=== PATIENT | male | born 1960 | race Caucasian/White ===

== ENCOUNTER → 2019-03-25 | Outpatient (CLI) | payer BC ==
--- NOTE | 2019-03-25 11:20 | REP ---
CT IACs / temporal bones: 03/25/2019. Indication: Hearing loss. Comparison: None. Technique: Axial images of the temporal bones were obtained without IV IV contrast with coronal reconstructions provided. Findings: Left: Mastoid effusion is present without coalescence. There is abnormal soft tissue within the hypotympanum of the middle ear cavity. No ossicular erosion or adjacent osseous erosion is detected. There is retraction of the tympanic membrane. The inner inner anatomy and IAC appear normal. No cerebellopontine angle abnormalities are detected. There is no carotid artery aberrancy. Right: The right mastoid air cells are clear. The middle and inner ear anatomy appears normal. No abnormalities of the IAC or cerebellopontine angle are present. There is minimal periosteal distal thickening within the inferior right maxillary sinus. There is no carotid artery aberrancy. No ocular, intraorbital or intracranial abnormalities are detected save for intracranial atherosclerotic disease. Impression: Left-sided mastoid effusion without coalescence and abnormal tissue within the left middle ear cavity without ossicular/osseous erosion. Findings are likely inflammatory, however, please correlate. Unremarkable right IAC / temporal bones. Minimal chronic appearing right maxillary sinus disease. Electronically Signed by Edil Cueva DO 03/25/2019 11:12 A
== END ==
LOC: M RAD 07:25
PROVIDERS: ATTEND Otolaryngology
DX: I67.2 Cerebral atherosclerosis (principal); H70.12 Chronic mastoiditis, left ear; H73.892 Other specified disorders of tympanic membrane, left ear; J32.0 Chronic maxillary sinusitis; H90.A31 Mixed conductive and sensorineural hearing loss, unilateral, right ear with restricted hearing on the contralateral side

== ENCOUNTER → 2019-09-30 | Outpatient (CLI) | payer BC ==
[2019-09-30 17:02] LABS: BLOOD UREA NITROGEN 18 MG/DL (7-18); GLOMERULAR FILTRATION RATE > 60.0 (>49)
== END ==
LOC: M LAB 15:41
PROVIDERS: ATTEND Physician Assistant Medical
DX: H90.A31 Mixed conductive and sensorineural hearing loss, unilateral, right ear with restricted hearing on the contralateral side (principal)

== ENCOUNTER → 2019-10-06 | Outpatient (CLI) | payer BC ==
[~2019-10-06] MED LIST: PROHANCE 279.3MG/ML 15ML VIAL As Ordered ONE; PROHANCE 279.3MG/ML 5ML VIAL As Ordered ONE
--- NOTE | 2019-10-06 10:39 | REP ---
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 Comparison study MRI brain June 21, 2019. TECHNIQUE: Axial, coronal and sagittal imaging planes are utilized. T1- and T2-weighted scans are included. Diffusion weighted scans are included. Thin section posterior fossa at T1 and T2-weighted scans are included. MRI FINDINGS: Craniocervical junction and upper cervical cord are unremarkable. No bony calvarial lesion is seen. There is no evidence of intraorbital abnormality. The deep facial soft tissues are unremarkable. There is no MR evidence of significant paranasal sinus disease. FLAIR and turbo spin echo T2-weighted scans again demonstrate 2-3 subcortical and periventricular white matter foci of T2 hyperintensity consistent with microvascular ischemic changes. These are unchanged. The internal auditory canals are normal in size and symmetric. Seventh and eighth nerves are seen within them. There is no evidence of CP angle cistern mass. No vascular abnormality is appreciated. Postcontrast images show no abnormal intercanalicular or extra canalicular contrast enhancement. No abnormal intracranial contrast enhancement is appreciated. Diffusion weighted scans show no evidence to suggest acute ischemia. There is no evidence of intracranial hemorrhage, mass, extra-axial fluid collection, or midline shift. Ventricular system is normal in size and configuration. IMPRESSION: No acute intracranial abnormality. Normal internal auditory canals. Electronically Signed by Gatito Josue MD 10/06/2019 11:49 A
== END ==
LOC: M RAD 07:33
PROVIDERS: ATTEND Physician Assistant Medical
DX: H90.A31 Mixed conductive and sensorineural hearing loss, unilateral, right ear with restricted hearing on the contralateral side (principal)
CPT/HCPCS: 70553; A9576

== ENCOUNTER → 2021-07-12 | Outpatient (CLI) | payer BC ==
[~2021-07-12] MED LIST changes: +ASPI81TA26 PO; +ATOR1TAB19 PO; +CINN500C15 PO; +DIPH25CA32 PO; +FARX1TAB3 PO; +FLAX1CAP5 PO; +FLUTISP; +HYDR-3490 PO; +JANU100T PO; +LISI40TA4 PO; +LOTE0.5S OU; +OMEP-173 PO; -PROHANCE 279.3MG/ML 15ML VIAL As Ordered ONE; -PROHANCE 279.3MG/ML 5ML VIAL As Ordered ONE; +TRUL10IN SC; +VITMTA PO; +eye promise PO
== END ==
LOC: M LABSMTC 09:11
PROVIDERS: ATTEND Anesthesiology
DX: Z01.812 Encounter for preprocedural laboratory examination (principal); Z20.822 Contact with and (suspected) exposure to COVID-19

== ENCOUNTER → 2021-08-11 | Outpatient (CLI) | payer BC | LOC: M LABSMTC 10:06 | PROVIDERS: ATTEND Anesthesiology | DX: Z01.812 Encounter for preprocedural laboratory examination (principal); Z20.822 Contact with and (suspected) exposure to COVID-19 ==

== ENCOUNTER 2021-08-16 09:47 | Day surgery (SDC) | payer BC ==
[~2021-08-16] VITALS: Ht 170.2 cm; Wt 90.7 kg
[~2021-08-16 09:47] MED LIST changes: +NS 1,000 ML IV ONE
[2021-08-16] MEDS ORDERED: LIDOCAINE 2% 100MG/5ML SDV (FOR ANES.) As Ordered ONE (11:33)
[2021-08-16] MEDS ORDERED: propofoL 200 MG/20 ML VIAL As Ordered ONE (11:33)
[2021-08-16 12:06] VITALS: BP 123/89
== END 2021-08-16 12:13 | disposition home or self-care (01) ==
LOC: M OPP 09:47
PROVIDERS: ATTEND Surgery
DX: Z12.11 Encounter for screening for malignant neoplasm of colon (principal); K62.1 Rectal polyp; K57.30 Diverticulosis of large intestine without perforation or abscess without bleeding; E11.9 Type 2 diabetes mellitus without complications; Z79.82 Long term (current) use of aspirin; Z79.84 Long term (current) use of oral hypoglycemic drugs; Z79.899 Other long term (current) drug therapy

== ENCOUNTER → 2023-03-18 | Outpatient (CLI) | payer BC ==
[~2023-03-18] MED LIST changes: +DIPH-435 PO; -DIPH25CA32 PO; +FLUT50SP17; -FLUTISP; +METF500T13; -NS 1,000 ML IV ONE; +[UNRECOGNIZED DRUG - OTHER] PO
== END ==
LOC: M ONCR 10:26
PROVIDERS: ATTEND General Practice
DX: R91.1 Solitary pulmonary nodule (principal); M89.9 Disorder of bone, unspecified; M54.50 Low back pain, unspecified; Z71.2 Person consulting for explanation of examination or test findings; Z79.51 Long term (current) use of inhaled steroids; Z79.84 Long term (current) use of oral hypoglycemic drugs; Z79.85 Long-term (current) use of injectable non-insulin antidiabetic drugs; Z79.899 Other long term (current) drug therapy

== ENCOUNTER → 2023-03-19 | Outpatient (CLI) | payer BC ==
[~2023-03-19] MED LIST changes: +PROHANCE 279.3MG/ML 15ML VIAL As Ordered ONE; +PROHANCE 279.3MG/ML 5ML VIAL As Ordered ONE
== END ==
LOC: M RAD 14:55
PROVIDERS: ATTEND Internal Medicine Hematology & Oncology
DX: C34.90 Malignant neoplasm of unspecified part of unspecified bronchus or lung (principal); K76.89 Other specified diseases of liver; R90.82 White matter disease, unspecified; G31.9 Degenerative disease of nervous system, unspecified; I67.82 Cerebral ischemia
CPT/HCPCS: 70553; A9576

== ENCOUNTER → 2023-04-07 | Outpatient (CLI) | payer BC ==
[~2023-04-07] MED LIST changes: -PROHANCE 279.3MG/ML 15ML VIAL As Ordered ONE; -PROHANCE 279.3MG/ML 5ML VIAL As Ordered ONE
== END ==
LOC: M PLARAD 07:25
PROVIDERS: ATTEND Internal Medicine Medical Oncology
DX: K76.89 Other specified diseases of liver (principal); R91.8 Other nonspecific abnormal finding of lung field
CPT/HCPCS: 78815; A9552

== ENCOUNTER → 2023-04-09 | Outpatient (CLI) | payer BC | LOC: M ONCR 10:51 | PROVIDERS: ATTEND General Practice | DX: C34.2 Malignant neoplasm of middle lobe, bronchus or lung (principal); C79.51 Secondary malignant neoplasm of bone; K76.9 Liver disease, unspecified; Z71.2 Person consulting for explanation of examination or test findings; Z79.51 Long term (current) use of inhaled steroids; Z79.84 Long term (current) use of oral hypoglycemic drugs; Z79.85 Long-term (current) use of injectable non-insulin antidiabetic drugs; Z79.899 Other long term (current) drug therapy ==

== ENCOUNTER → 2023-04-15 | Outpatient (CLI) | payer BC ==
[~2023-04-15] MED LIST changes: +LIDOCAINE 1% MDV 20ML VIAL As Ordered ONE
[2023-04-15 09:30] VITALS: TEMP 98.2
[2023-04-15 12:15] VITALS: BP 140/87; O2SAT 95
== END ==
LOC: M IRPRO 09:15
PROVIDERS: ATTEND Internal Medicine Hematology & Oncology
DX: K76.89 Other specified diseases of liver (principal); C78.7 Secondary malignant neoplasm of liver and intrahepatic bile duct

== ENCOUNTER → 2023-05-08 | Outpatient (RCR) | payer BC ==
[~2023-05-08] MED LIST changes: -FLUT50SP17; +FLUTISP; -LIDOCAINE 1% MDV 20ML VIAL As Ordered ONE
== END ==
LOC: M ONCR 04-16 13:51
PROVIDERS: ATTEND General Practice
DX: Z51.0 Encounter for antineoplastic radiation therapy (principal); C79.51 Secondary malignant neoplasm of bone

== ENCOUNTER 2023-05-09 09:20 | Outpatient (RCR) | payer BC | END 2023-06-08 | LOC: M ONCR 09:20 | PROVIDERS: ATTEND General Practice | DX: Z51.0 Encounter for antineoplastic radiation therapy (principal); C79.51 Secondary malignant neoplasm of bone ==

== ENCOUNTER 2023-06-24 07:45 | Outpatient (RCR) | payer BC, OTHER ==
[2023-07-10] MEDS ORDERED: THERTAB52 PO (14:04)
[2023-07-10] MEDS ORDERED: METF-838 PO (14:04)
== END 2023-07-09 ==
LOC: M ONCR 07:45
PROVIDERS: ATTEND General Practice
DX: Z51.0 Encounter for antineoplastic radiation therapy (principal); C79.51 Secondary malignant neoplasm of bone

== ENCOUNTER → 2023-08-06 | Outpatient (REF) | payer OTHER, BC ==
[~2023-08-06] MED LIST changes: +ACET300T48 PO; +METF-838 PO; +THERTAB52 PO
[2023-08-06 10:50] LABS: HEMOGLOBIN A1c 7.6 % (4.0-6.0)
== END ==
LOC: M LAB REF 08:25
PROVIDERS: ATTEND Nurse Practitioner Family
DX: E11.9 Type 2 diabetes mellitus without complications (principal)

== ENCOUNTER → 2023-08-07 | Outpatient (CLI) | payer OTHER | LOC: M RAD 15:57 | PROVIDERS: ATTEND Internal Medicine Medical Oncology | DX: C7A.8 Other malignant neuroendocrine tumors (principal) ==

== ENCOUNTER → 2023-09-03 | Outpatient (REF) | payer OTHER ==
[2023-09-03 09:42] LABS: HEMOGLOBIN A1c 7.7 % (4.0-6.0)
== END ==
LOC: M LAB REF 08:36
PROVIDERS: ATTEND Nurse Practitioner Family
DX: E11.9 Type 2 diabetes mellitus without complications (principal)

== ENCOUNTER → 2023-09-25 | Outpatient (CLI) | payer BC, OTHER | LOC: M ONCR 08:56 | PROVIDERS: ATTEND General Practice | DX: C7A.090 Malignant carcinoid tumor of the bronchus and lung (principal); C79.51 Secondary malignant neoplasm of bone; Z71.2 Person consulting for explanation of examination or test findings; Z79.51 Long term (current) use of inhaled steroids; Z79.84 Long term (current) use of oral hypoglycemic drugs; Z79.85 Long-term (current) use of injectable non-insulin antidiabetic drugs; Z79.899 Other long term (current) drug therapy; Z92.3 Personal history of irradiation ==

== ENCOUNTER → 2023-10-01 | Outpatient (REF) | payer OTHER | LOC: M LAB REF 10:06 | PROVIDERS: ATTEND Nurse Practitioner Family | DX: E11.9 Type 2 diabetes mellitus without complications (principal) ==

== ENCOUNTER → 2023-10-29 | Outpatient (REF) | payer OTHER ==
[~2023-10-29] MED LIST changes: +ATOR1TAB21
[2023-10-29 11:32] LABS: HEMOGLOBIN A1c 7.9 % (4.0-6.0)
== END ==
LOC: M LAB REF 10:18
PROVIDERS: ATTEND Nurse Practitioner Family
DX: E11.9 Type 2 diabetes mellitus without complications (principal)

== ENCOUNTER → 2023-11-26 | Outpatient (REF) | payer OTHER ==
[2023-11-26 09:18] LABS: HEMOGLOBIN A1c 7.6 % (4.0-6.0)
== END ==
LOC: M LAB REF 08:05
PROVIDERS: ATTEND Nurse Practitioner Family
DX: E11.9 Type 2 diabetes mellitus without complications (principal)

== ENCOUNTER → 2023-12-10 | Outpatient (CLI) | payer OTHER ==
[~2023-12-10] MED LIST changes: +HYDR-4517 PO
== END ==
LOC: M ONCR 15:05
PROVIDERS: ATTEND General Practice
DX: C34.2 Malignant neoplasm of middle lobe, bronchus or lung (principal); C79.51 Secondary malignant neoplasm of bone; Z79.84 Long term (current) use of oral hypoglycemic drugs; Z79.899 Other long term (current) drug therapy; Z92.3 Personal history of irradiation

== ENCOUNTER → 2023-12-25 | Outpatient (REF) | payer OTHER | LOC: M LAB REF 08:18 | PROVIDERS: ATTEND Registered Nurse | DX: E11.9 Type 2 diabetes mellitus without complications (principal) ==

== ENCOUNTER → 2024-01-28 | Outpatient (REF) | payer OTHER ==
[~2024-01-28] MED LIST changes: +MS C15TA8 PO
[2024-01-28 15:59] LABS: CHOLESTEROL RISK RATIO 4.82 (<5); HDL CHOLESTEROL 30.7 MG/DL (>40); LDL CHOLESTEROL 95.5 MG/DL (<100); NON-HDL-C 117.3 MG/DL
[2024-01-28 16:13] LABS: HEMOGLOBIN A1c 8.4 % (4.0-6.0)
== END ==
LOC: M LAB REF 14:58
PROVIDERS: ATTEND Registered Nurse
DX: E11.9 Type 2 diabetes mellitus without complications (principal); E78.5 Hyperlipidemia, unspecified

== ENCOUNTER → 2024-02-19 | Outpatient (REF) | payer OTHER ==
[2024-02-19 13:46] LABS: CHOLESTEROL RISK RATIO 4.33 (<5); HDL CHOLESTEROL 33.9 MG/DL (>40); LDL CHOLESTEROL 94.5 MG/DL (<100); NON-HDL-C 113.1 MG/DL
== END ==
LOC: M LAB REF 12:48
PROVIDERS: ATTEND Nurse Practitioner Family
DX: E78.5 Hyperlipidemia, unspecified (principal); E11.9 Type 2 diabetes mellitus without complications

== ENCOUNTER 2024-02-27 16:23 | Emergency (ER) | payer OTHER ==
[~2024-02-27] VITALS: Ht 165.1 cm; Wt 70.0 kg
[~2024-02-27 16:23] MED LIST changes: -ATOR1TAB21; +ATOR1TAB21 PO; +HYDR-3719 PO; +MS C30TA6 PO
[2024-02-27] MEDS ORDERED: TRUL10IN SC (17:42)
[2024-02-27 17:49] LABS: BASO # 0.1 10^3/uL (0.0-0.2); BASO % 0.9 % (0.0-1.0); EOS # 0.2 10^3/uL (0.0-0.5); EOS % 2.5 % (0.0-3.0); HEMATOCRIT 37.1 % (42.0-52.0); HEMOGLOBIN 12.1 g/dl (13.5-17.5); LYMPH # 0.8 10^3/uL (1.5-5.0); LYMPH % 9.5 % (24.0-44.0); MEAN CORPUSCULAR HEMOGLOBIN 29.2 pg (27.0-33.0); MEAN CORPUSCULAR HGB CONC 32.6 g/dl (32.0-36.5); MEAN CORPUSCULAR VOLUME 89.4 fl (80.0-96.0); MONO # 0.8 10^3/uL (0.0-0.8); MONO % 10.5 % (2.0-8.0); NEUTROPHILS # 6.1 10^3/uL (1.5-8.5); NEUTROPHILS % 76.2 % (36.0-66.0); PLATELET COUNT, AUTOMATED 215 10^3/uL (150-450); RED BLOOD COUNT 4.15 10^6/uL (4.30-6.10)
[2024-02-27 18:01] LABS: INR 1.22; PARTIAL THROMBOPLASTIN TIME 27.4 SECONDS (24.8-34.2)
[2024-02-27 18:05] LABS: LIPASE 50 U/L (12-53)
[2024-02-27 18:07] LABS: ALBUMIN 3.2 G/DL (3.2-5.2); ALKALINE PHOSPHATASE 575 U/L (46-116); ALT/SGPT 32 U/L (7.0-40); AST/SGOT 40 U/L (<34); BILIRUBIN,DIRECT 0.3 MG/DL (<0.4); BILIRUBIN,TOTAL 0.6 MG/DL (0.3-1.2); BLOOD UREA NITROGEN 11 MG/DL (9-23); CALCIUM LEVEL 8.2 MG/DL (8.3-10.6); CARBON DIOXIDE LEVEL 27 MMOL/L (20-31); CHLORIDE LEVEL 102 MMOL/L (98-107); CK-MB VALUE MASS < 1.0 NG/ML (<3.6); CREATININE FOR GFR 0.58 MG/DL (0.70-1.30); GLOMERULAR FILTRATION RATE > 60.0 (>49); GLUCOSE, FASTING 136 MG/DL (74-106); POTASSIUM SERUM 4.1 MMOL/L (3.5-5.1); SODIUM LEVEL 135 MMOL/L (136-145); TOTAL PROTEIN 6.8 G/DL (5.7-8.2)
[2024-02-27 18:09] LABS: FREE T4 0.88 NG/DL (0.89-1.76); THYROID STIMULATING HORMONE 0.651 uIU/ML (0.55-4.78)
[2024-02-27] MEDS ORDERED: ISOVUE-370 76% 100ML VIAL As Ordered ONE (18:21)
[2024-02-27 18:22] LABS: CPK CREATINE PHOSPHOKINASE 88 U/L (46-171); MB/CK RELATIVE INDEX 1.13 (< OR =4)
[2024-02-27 19:41] LABS: CK-MB VALUE MASS < 1.0 NG/ML (<3.6)
[2024-02-27 19:42] LABS: CPK CREATINE PHOSPHOKINASE 74 U/L (46-171); MB/CK RELATIVE INDEX 1.35 (< OR =4)
[2024-02-27] MEDS ORDERED: HYDR-4517 PO (23:33)
[2024-02-27] MEDS ORDERED: DULA4.5P INJ (23:33)
[2024-02-27] MEDS ORDERED: HOME MED LIST COMPLETE! XX SCH (23:35)
[2024-02-27] MEDS: NORCO, ANEXSIA 5/325MG TABLET (HYDROcodone/ACETAMINOPHEN) PO ONE (23:51)
[2024-02-28 00:15] VITALS: BP 143/89; TEMP 98.2; O2SAT 94
== END 2024-02-28 00:37 | disposition home or self-care (01) ==
LOC: M ED 16:23
DX: R06.00 Dyspnea, unspecified (principal); R10.9 Unspecified abdominal pain; C79.51 Secondary malignant neoplasm of bone; D35.02 Benign neoplasm of left adrenal gland; R91.8 Other nonspecific abnormal finding of lung field; R16.0 Hepatomegaly, not elsewhere classified; K76.89 Other specified diseases of liver; M47.9 Spondylosis, unspecified; E11.9 Type 2 diabetes mellitus without complications; I10 Essential (primary) hypertension; Z79.899 Other long term (current) drug therapy; Z79.84 Long term (current) use of oral hypoglycemic drugs
CPT/HCPCS: 71045; 71275; 74177; 80047; 80048; 80076; 82550; 82553; 83690; 83880; 84439; 84443; 84484; 85025; 85610; 85730; 87486; 87581; 87633; 87798; 93005; 93041; 94760; 99285; Q9967

== ENCOUNTER → 2024-03-22 | Outpatient (REF) | payer OTHER ==
[~2024-03-22] MED LIST changes: +DULA4.5P INJ
[2024-03-22 16:01] LABS: CHOLESTEROL RISK RATIO 3.99 (<5); HDL CHOLESTEROL 36.8 MG/DL (>40); LDL CHOLESTEROL 92.2 MG/DL (<100); NON-HDL-C 110.2 MG/DL
[2024-03-22 16:13] LABS: HEMOGLOBIN A1c 7.6 % (4.0-6.0)
== END ==
LOC: M LAB REF 15:18
PROVIDERS: ATTEND Registered Nurse
DX: E78.5 Hyperlipidemia, unspecified (principal); E11.9 Type 2 diabetes mellitus without complications

== ENCOUNTER → 2024-03-26 | Outpatient (CLI) | payer OTHER | LOC: M ONCR 10:33 | PROVIDERS: ATTEND General Practice | DX: C34.2 Malignant neoplasm of middle lobe, bronchus or lung (principal); C79.51 Secondary malignant neoplasm of bone; K76.9 Liver disease, unspecified; R10.11 Right upper quadrant pain; Z79.51 Long term (current) use of inhaled steroids; Z79.84 Long term (current) use of oral hypoglycemic drugs; Z79.899 Other long term (current) drug therapy; Z92.3 Personal history of irradiation ==

== ENCOUNTER → 2024-04-23 | Outpatient (REF) | payer OTHER ==
[2024-04-23 12:35] LABS: HEMOGLOBIN A1c 7.3 % (4.0-6.0)
[2024-04-23 12:41] LABS: CHOLESTEROL RISK RATIO 3.47 (<5); HDL CHOLESTEROL 37.1 MG/DL (>40); LDL CHOLESTEROL 73.1 MG/DL (<100); NON-HDL-C 91.9 MG/DL
== END ==
LOC: M LAB REF 11:55
DX: E78.2 Mixed hyperlipidemia (principal); E11.9 Type 2 diabetes mellitus without complications

== ENCOUNTER → 2024-06-17 | Outpatient (REF) | payer OTHER ==
[~2024-06-17] MED LIST changes: +MORP30TASA PO
[2024-06-17 14:56] LABS: CHOLESTEROL RISK RATIO 3.58 (<5); HDL CHOLESTEROL 33.5 MG/DL (>40); LDL CHOLESTEROL 70.9 MG/DL (<100); NON-HDL-C 86.5 MG/DL
[2024-06-17 15:40] LABS: HEMOGLOBIN A1c 7.1 % (4.0-6.0)
== END ==
LOC: M LAB REF 14:01
DX: E11.9 Type 2 diabetes mellitus without complications (principal); E78.2 Mixed hyperlipidemia

== ENCOUNTER → 2024-08-23 | Outpatient (CLI) | payer OTHER ==
[~2024-08-23] MED LIST changes: +ISOVUE-370 76% 100ML VIAL As Ordered ONE; +LOMO2.5T PO
== END ==
LOC: M RAD 11:19
PROVIDERS: ATTEND Internal Medicine Medical Oncology
DX: C7A.8 Other malignant neuroendocrine tumors (principal); C78.7 Secondary malignant neoplasm of liver and intrahepatic bile duct; C79.72 Secondary malignant neoplasm of left adrenal gland; C78.6 Secondary malignant neoplasm of retroperitoneum and peritoneum
CPT/HCPCS: 71260; 74177; Q9967

== ENCOUNTER → 2024-09-07 | Outpatient (CLI) | payer OTHER ==
[~2024-09-07] MED LIST changes: +DULO30CA9 PO; -ISOVUE-370 76% 100ML VIAL As Ordered ONE; +MORP1SOL4 PO; +MORP20SO PO
== END ==
LOC: M ONCR 10:16
PROVIDERS: ATTEND General Practice
DX: C78.7 Secondary malignant neoplasm of liver and intrahepatic bile duct (principal); C34.2 Malignant neoplasm of middle lobe, bronchus or lung; C79.51 Secondary malignant neoplasm of bone; R64 Cachexia; Z92.3 Personal history of irradiation; Z79.85 Long-term (current) use of injectable non-insulin antidiabetic drugs; Z79.84 Long term (current) use of oral hypoglycemic drugs; Z79.899 Other long term (current) drug therapy

== ENCOUNTER → 2024-09-07 | Outpatient (CLI) | payer OTHER ==
[~2024-09-07] VITALS: Ht 165.1 cm; Wt 63.0 kg
[2024-09-07 10:35] VITALS: BP 115/77; O2SAT 97
== END ==
LOC: M PAL 10:12
PROVIDERS: ATTEND Physician Assistant
DX: Z51.5 Encounter for palliative care (principal); C7A.8 Other malignant neuroendocrine tumors; C7B.8 Other secondary neuroendocrine tumors; Z66 Do not resuscitate; Z79.891 Long term (current) use of opiate analgesic; Z79.899 Other long term (current) drug therapy
CPT/HCPCS: G0463 ×2

== ENCOUNTER 2024-09-14 10:26 | Inpatient (IN) | payer OTHER, MEDICARE ==
[~2024-09-14] VITALS: Ht 165.1 cm; Wt 60.5 kg
[2024-09-14 11:46] LABS: BASO % 0.1 % (0.0-1.0); EOS % 0.1 % (0.0-3.0); HEMATOCRIT 34.4 % (42.0-52.0); LYMPH # 0.4 10^3/uL (1.5-5.0); LYMPH % 2.2 % (24.0-44.0); MEAN CORPUSCULAR HEMOGLOBIN 29.7 pg (27.0-33.0); MONO # 1.2 10^3/uL (0.0-0.8); MONO % 6.4 % (2.0-8.0); NEUTROPHILS # 16.3 10^3/uL (1.5-8.5); NEUTROPHILS % 90.1 % (36.0-66.0); PLATELET COUNT, AUTOMATED 385 10^3/uL (150-450); WHITE BLOOD COUNT 18.1 10^3/uL (4.0-10.0)
[2024-09-14 12:18] LABS: CK-MB VALUE MASS < 1.0 NG/ML (<3.6)
[2024-09-14 12:19] LABS: BLOOD UREA NITROGEN 43 MG/DL (9-23); CALCIUM LEVEL 8.5 MG/DL (8.3-10.6); CARBON DIOXIDE LEVEL 26 MMOL/L (20-31); CHLORIDE LEVEL 98 MMOL/L (98-107); CPK CREATINE PHOSPHOKINASE 544 U/L (46-171); CREATININE FOR GFR 0.81 MG/DL (0.70-1.30); GLOMERULAR FILTRATION RATE > 60.0 (>49); GLUCOSE, FASTING 182 MG/DL (74-106); MB/CK RELATIVE INDEX 0.18 (< OR =4); POTASSIUM SERUM 5.2 MMOL/L (3.5-5.1); SODIUM LEVEL 132 MMOL/L (136-145)
[2024-09-14] MEDS ORDERED: ISOVUE-370 76% 100ML VIAL As Ordered ONE (14:31)
[2024-09-14] MEDS: HYDROMORPHONE HCL 0.5 MG/ 0.5 ML SYRINGE IV ONE (15:08)
[2024-09-14 15:16] LABS: CK-MB VALUE MASS < 1.0 NG/ML (<3.6)
[2024-09-14 15:19] LABS: CPK CREATINE PHOSPHOKINASE 510 U/L (46-171); MB/CK RELATIVE INDEX 0.19 (< OR =4)
[2024-09-14 17:19] LABS: KETONE, URINE AUTO RFX NEGATIVE (NEGATIVE); LEUKOCYTE ESTERASE UR AUTO RFX NEGATIVE (NEGATIVE); MUCUS, URINE RFX SMALL (NEGATIVE); NITRITE, URINE AUTO RFX NEGATIVE (NEGATIVE); RBC, URINE AUTO RFX 0 /HPF (0-3); SQUAM EPITHELIAL CELL UR AURFX 0 /HPF (0-6); WBC, URINE AUTO RFX 0 /HPF (0-3)
[2024-09-14 17:43] LABS: LIPASE 20 U/L (12-53)
[2024-09-14 17:56] LABS: PROCALCITONIN 1.38 ng/ml
[2024-09-14 17:58] LABS: ALBUMIN 2.1 G/DL (3.2-5.2); ALKALINE PHOSPHATASE 1162 U/L (40-129); ALT/SGPT 37 U/L (7.0-40); AST/SGOT 72 U/L (<34); BILIRUBIN,DIRECT 1.3 MG/DL (<0.4); BILIRUBIN,TOTAL 1.8 MG/DL (0.3-1.2); TOTAL PROTEIN 6.2 G/DL (5.7-8.2)
[2024-09-14] MEDS ORDERED: ACETAMINOPHEN 325 MG TAB PO PRN (18:00)
[2024-09-14] MEDS ORDERED: MOM 30ML SUSPENSION UDC PO PRN (18:00)
[2024-09-14] MEDS ORDERED: MAALOX 30 ML SUSP *UDC PO PRN (18:00)
[2024-09-14] MEDS: cefTRIAXone SOD 1 GM in DEXTROSE 5% (D5W) ADV/MINI-BAG 50 ML IV ONE (18:19)
[2024-09-14] MEDS ORDERED: DEXTROSE 50% 50ML SYRINGE IV PRN (18:20)
[2024-09-14] MEDS ORDERED: GLUCAGON INJ 1MG VIAL SC PRN (18:20)
[2024-09-14] MEDS ORDERED: GLUCOSE 4 GM CHEW PO PRN (18:20)
[2024-09-14] MEDS ORDERED: HOME MED LIST COMPLETE! XX SCH (18:40)
[2024-09-14] MEDS: MORPHINE SULFATE TAB EXT REL 30 MG PO SCH (21:00)
[2024-09-14] MEDS: INSULIN LISPRO (NovoLOG) PER UNIT SC SCH (21:02)
[2024-09-15 04:00] VITALS: TEMP 97
[2024-09-15 05:11] LABS: BASO % 0.1 % (0.0-1.0); EOS # 0.1 10^3/uL (0.0-0.5); EOS % 0.5 % (0.0-3.0); HEMATOCRIT 31.8 % (42.0-52.0); HEMOGLOBIN 10.3 g/dl (13.5-17.5); LYMPH # 0.6 10^3/uL (1.5-5.0); LYMPH % 3.6 % (24.0-44.0); MEAN CORPUSCULAR HEMOGLOBIN 29.9 pg (27.0-33.0); MEAN CORPUSCULAR HGB CONC 32.4 g/dl (32.0-36.5); MEAN CORPUSCULAR VOLUME 92.4 fl (80.0-96.0); MONO # 1.2 10^3/uL (0.0-0.8); MONO % 7.9 % (2.0-8.0); NEUTROPHILS # 13.2 10^3/uL (1.5-8.5); NEUTROPHILS % 87.1 % (36.0-66.0); PLATELET COUNT, AUTOMATED 362 10^3/uL (150-450); RED BLOOD COUNT 3.44 10^6/uL (4.30-6.10); WHITE BLOOD COUNT 15.1 10^3/uL (4.0-10.0)
[2024-09-15 05:35] LABS: BLOOD UREA NITROGEN 44 MG/DL (9-23); CALCIUM LEVEL 8.1 MG/DL (8.3-10.6); CARBON DIOXIDE LEVEL 28 MMOL/L (20-31); CHLORIDE LEVEL 99 MMOL/L (98-107); CREATININE FOR GFR 0.76 MG/DL (0.70-1.30); GLOMERULAR FILTRATION RATE > 60.0 (>49); GLUCOSE, FASTING 144 MG/DL (74-106); MAGNESIUM LEVEL 1.9 MG/DL (1.8-2.4); POTASSIUM SERUM 4.6 MMOL/L (3.5-5.1); SODIUM LEVEL 135 MMOL/L (136-145)
[2024-09-15] MEDS ORDERED: MORPHINE SULFATE ORAL SOLN 10 MG/5 ML UD PO PRN ×2 (07:30→17:00)
[2024-09-15 07:31] LABS: C REACTIVE PROTEIN QUANTITATIV 8.75 MG/DL (<1.0)
[2024-09-15] MEDS: INSULIN LISPRO (NovoLOG) PER UNIT SC SCH (08:31)
[2024-09-15 08:32] VITALS: BP 127/82
[2024-09-15] MEDS: ENOXAPARIN 40MG/0.4ML SYRINGE (J1650 PER 10MG) SC SCH (08:32)
[2024-09-15] MEDS: lisinopriL 40MG TAB PO SCH (08:32)
[2024-09-15] MEDS: hydroCHLOROthiazide 12.5 MG CAPSULE PO SCH (08:33)
[2024-09-15] MEDS: OMEPRAZOLE 20MG CAP PO SCH (08:35)
[2024-09-15] MEDS: diphenhydrAMINE 25MG CAP PO SCH (08:35)
[2024-09-15 11:17] VITALS: BP 123/77
[2024-09-15 14:15] VITALS: O2SAT 95
[2024-09-15] MEDS: dexAMETHasone 4 MG TAB PO SCH (15:34)
[2024-09-15] MEDS ORDERED: ONDANSETRON 4MG ORAL DISINTEGRATING TAB PO PRN (16:20)
[2024-09-15] MEDS ORDERED: OLANZapine ORAL DISINTEGRATING TAB 5MG PO PRN (16:20)
[2024-09-15] MEDS ORDERED: ATROPINE SULFATE 1% OPHTH SOLN 2ML BTL SL PRN (16:20)
[2024-09-15] MEDS ORDERED: HYOSCYAMINE SULFATE 0.125 MG SUBL TABLET PO PRN (16:20)
[2024-09-15] MEDS ORDERED: cefTRIAXone SOD 1 GM in DEXTROSE 5% (D5W) ADV/MINI-BAG 50 ML IV SCH (18:00)
[2024-09-15] MEDS ORDERED: ATORVASTATIN 20 MG TAB PO SCH (21:00)
[2024-09-16] MEDS: dexAMETHasone 4 MG TAB PO SCH (09:28)
[2024-09-17] MEDS: MORPHINE 10MG/0.5ML ORAL CONCENTRATE SOLUTION U/D SL PRN (13:57)
[2024-09-17] MEDS: MORPHINE SULFATE TAB EXT REL 30 MG PO SCH (18:41)
[2024-09-18] MEDS: LORazepam 1 MG TAB PO PRN (18:25)
[2024-09-20] MEDS ORDERED: ATIV1TAB10 PO (08:43)
[2024-09-20] MEDS ORDERED: HYOS125TA PO (08:43)
[2024-09-20] MEDS ORDERED: DEXA4TA PO (08:43)
[2024-09-20] MEDS ORDERED: MORP1SOL5 PO (08:43)
[2024-09-20] MEDS ORDERED: CHLOR25TA PO (08:43)
== END 2024-09-20 10:30 | disposition hospice, home (50) | DRG 92 ==
LOC: M ED 10:26 → M ED INP 17:57 → M MSPAV 09-15 16:34
PROVIDERS: ADMIT Student in an Organized Health Care Education/Training Program; ATTEND Student in an Organized Health Care Education/Training Program
DX: G72.81 Critical illness myopathy (principal); C7A.8 Other malignant neuroendocrine tumors; E87.1 Hypo-osmolality and hyponatremia; C78.7 Secondary malignant neoplasm of liver and intrahepatic bile duct; C78.00 Secondary malignant neoplasm of unspecified lung; C79.51 Secondary malignant neoplasm of bone; K21.9 Gastro-esophageal reflux disease without esophagitis; E78.5 Hyperlipidemia, unspecified; I10 Essential (primary) hypertension; E11.9 Type 2 diabetes mellitus without complications; E87.5 Hyperkalemia; Z66 Do not resuscitate; Z79.84 Long term (current) use of oral hypoglycemic drugs; Z79.899 Other long term (current) drug therapy; Z51.5 Encounter for palliative care

== ENCOUNTER 2024-09-16 13:00 | Outpatient (RCR) | payer OTHER, MEDICARE ==
[2024-09-20] MEDS ORDERED: CHLOR25TA PO (08:43)
[2024-09-20] MEDS ORDERED: DEXA4TA PO (08:43)
[2024-09-20] MEDS ORDERED: HYOS125TA PO (08:43)
[2024-09-20] MEDS ORDERED: MORP1SOL5 PO (08:43)
[2024-09-20] MEDS ORDERED: ATIV1TAB10 PO (08:43)
== END 2024-10-06 ==
LOC: M ONCR 13:00
PROVIDERS: ATTEND General Practice
DX: Z51.0 Encounter for antineoplastic radiation therapy (principal); C7B.02 Secondary carcinoid tumors of liver